=== PATIENT | male | born 1980 | race African-American/Black ===

== ENCOUNTER 2021-06-22 10:11 | Emergency (ER) | payer OTHER ==
[~2021-06-22] VITALS: Ht 172.7 cm; Wt 72.6 kg
--- NOTE | ~2021-06-22 | EMS ---
[facility] [address] [place] [address] EMS Patient Care Report Name: JOHAN PATEL Room #: REG KIERAN Cárdenas#: [id number] Admission: 06/22/21 Attend Phys: Discharge: Date of : 82 Report #: [id number] THIS REPORT FOR: //name// Report Transmitted: 06/22/2021 11:41 EMS Care Summary [place], [place]/[facility] Incident [id number] @ 06/22/2021 09:43 Incident Location [address] Patient JOHAN PATEL Male, Patient Address homeless Chief Complaint etoh intox Disposition Transported No Lights/[facility] Reason Unknown Problem/Person Down Transported [facility] [place] Narrative Arrived to find C120 and P41 with pt who was heavily slurring his speech and was mostly jibberish. Pt is unable to stand or hold himself up. Pt tries to answer questions but it was difficult to understand. Pt first name Caleb, but unable to understand last name or birthday. Pt has strong odor of ETOH and empty beer cans next to him. Pt lifted onto cot and secured to cot with cot straps. Pt placed in back of unit and placed in surgical mask. Pt transported without incident. Care to RN, rm 10. Initial Vitals @09:54P: 82,BP: 126/80,SpO2: 95, @09:55P: 56,R: 16,BP: 118/77,Pain: 0/10,GCS: 14,Glucose: 145,SpO2: 94,Revised Trauma: 12, [facility] [address] [place] [address] EMS Patient Care Report Name: JOHAN PATEL Room #: REG KIERAN Cárdenas#: [id number] Admission: 06/22/21 Attend Phys: Discharge: Date of : 82 Report #: [id number] Assessments @09:50MENTAL:Confused,Person Oriented,SKIN:HEENT:Head/Face: No Abnormalities,Eyes: No Abnormalities,Neck/Airway: No Abnormalities,LUNG SOUNDS:Left Upper: No Abnormalities,Right Upper: No Abnormalities,Left Lower: No Abnormalities,Right Lower: No Abnormalities,ABDOMEN:Left Upper: No Abnormalities,Right Upper: No Abnormalities,Left Lower: No Abnormalities,Right Lower: No Abnormalities,PELVIS//GI:Incontinence,EXTREMITIES:Left Arm: No Abnormalities,Right Arm: No Abnormalities,Left Leg: No Abnormalities,Right Leg: No Abnormalities,PULSE:NEURO:Slurred Speech,Abnormal Gait, Impression Overdose - Alcohol Procedures @09:50 ALS Assessment Response: UnchangedSucceeded Timeline 09:42,Call Received 09:42,Dispatch Notified 09:43,Dispatched 09:44,En Route 09:49,On Scene 09:49,At Patient 09:50,ALS Assessment,Response: UnchangedSucceeded, 09:54,BP: 126/80 M,PULSE: 82,RR: R,SPO2: 95 Ox,ETCO2: ,BG: ,PAIN: ,GCS: , 09:55,BP: 118/77 M,PULSE: 56,RR: 16 R,SPO2: 94 Ox,ETCO2: ,B,PAIN: 0,GCS: 14, 09:56,Depart Scene 09:58,At Destination 10:16,Call Closed Disclaimer [email or web address] Copyright 2020 [email or web address] This EMS Care Summary contains data elements from the applicable legal record (which may be displayed differently). It is designed to provide pertinent information for the following purposes: continuity of care, clinical quality, and state data reporting. The complete legal record is available to ED staff and administrators of the receiving hospital in [employer] Patient Tracker. All data is provided "as is."
[2021-06-22 11:39] LABS: AMP/METHAMP Negative (Negative); BARBITURATES Negative (Negative); BENZODIAZEPINES Negative (Negative); COCAINE Negative (Negative); METHADONE Negative (Negative); OPIATES Negative (Negative); PCP Negative (Negative)
[2021-06-22 12:14] LABS: HEMATOCRIT 41.6 % (42.0-52.0); HEMOGLOBIN 14.1 gm/dL (14.0-18.0); MCHC 33.8 g/dL (28.0-37.0); MCV 100.6 fL (80.0-100.0); RBC 4.13 mil/uL (4.50-6.00); RDW 14.3 % (10.5-14.5); WBC 7.2 thou/uL (4.0-11.0)
[2021-06-22 12:28] LABS: CALCIUM 9.5 mg/dL (8.5-10.1); CREATININE 0.8 mg/dL (0.7-1.3); POTASSIUM 3.8 mmol/L (3.5-5.1)
[2021-06-22 14:28] VITALS: BP 90/65
== END 2021-06-22 14:30 | disposition home or self-care (01) ==
LOC: ER 10:11
PROVIDERS: Emergency Medicine
DX: F10.129 Alcohol abuse with intoxication, unspecified (principal); Y90.8 Blood alcohol level of 240 mg/100 ml or more